=== PATIENT | female | born 1935 | race Caucasian/White ===

== ENCOUNTER 2017-06-01 07:29 | Emergency (ER) | payer OTHER, MEDICARE ==
[~2017-06-01] VITALS: Ht 165.1 cm; Wt 72.6 kg
[2017-06-01 07:36] VITALS: BP 139/73
[2017-06-01] MEDS ORDERED: TRAMADOL 50 MG50 MG PO (08:08)
[2017-07-21] MEDS ORDERED: LOPRESSOR50 PO (11:31)
[2017-07-21] MEDS ORDERED: HYDROCHLOROTHIA50 MG PO (11:32)
[2017-07-21] MEDS ORDERED: ATIVAN1 MG PO (11:32)
[2017-07-21] MEDS ORDERED: ATORVASTATIN CA40 MG PO (11:32)
[2017-07-21] MEDS ORDERED: VITAMIN E400 UNIT PO (11:33)
[2017-07-21] MEDS ORDERED: CENTRUM SILVER1 EAC4 PO (11:34)
[2017-07-21] MEDS ORDERED: ASPIRIN325 PO (11:35)
== END 2017-06-01 08:53 | disposition home or self-care (01) ==
LOC: ER 07:29
DX: M23.91 Unspecified internal derangement of right knee (principal); Z88.5 Allergy status to narcotic agent

== ENCOUNTER → 2017-07-27 | Outpatient (CLI) | payer OTHER, MEDICARE ==
[~2017-07-27] VITALS: Ht 165.1 cm; Wt 72.6 kg
[~2017-07-27] MED LIST: ASPIRIN325 PO; ATIVAN1 MG PO; ATORVASTATIN CA40 MG PO; CENTRUM SILVER1 EAC4 PO; HYDROCHLOROTHIA50 MG PO; LOPRESSOR50 PO; TRAMADOL 50 MG50 MG PO; VITAMIN E400 UNIT PO
--- NOTE | ~2017-07-27 | S ---
[facility] [place] [address] SURGICAL PATH RPT PROCEDURE Name: RICHA DAIGLE Room #: REG [facility] M..#: [id number] Admission: 07/27/17 Date of : 33 Discharge: Report #: [id number] Path Case #: [id number] PATHOLOGY REPORT COLLECTION DATE: 07/27/2017 RECEIVED DATE: 07/27/2017 SUBMITTING PHYS: Dr. Georges Wall OTHER PHYS: Dr. Arron Prater SPECIMEN(S) RECEIVED: A.Bx of cecal polyp * * * * * * * * * * * * FINAL DIAGNOSIS: Polyp, biopsy of cecal polyp, endoscopic biopsy: - Tubular adenoma. - Negative for high grade dysplasia. (IUV:mml; 07/28/2017) PATHOLOGIST: Yolanda Zarco M.D. REPORT ELECTRONICALLY SIGNED BY: Yolanda Zarco M.D. DATE/TIME: 07/28/2017 13:25 * * * * * * * * * * * * GROSS PATHOLOGY: Received in formalin labeled "Richa Daigle, BX of cecal polyp" and consists of a 0.5 cm soft mcdermott tissue fragment which is entirely submitted as A1. (SAKSHI; 07/27/2017) CLINICAL HISTORY: History of polyps INITIAL CPT CODE(S): A; 73857 Professional services performed by [facility] at [facility] [address], [place] [address] Technical services performed by [facility] at [address] [place] [address]., [address], [place] [address]. [facility] [address] [place] [address] SURGICAL PATH RPT PROCEDURE Name: RICHA DAIGLE Room #: REG BRIAN Zarate#: [id number] Admission: 07/27/17 Date of : 33 Discharge: Report #: [id number] Path Case #: [id number] [place] [address] PHONE: [phone] DIRECTOR: Dipak Colbert M.D. * * * END OF REPORT * * *
--- NOTE | ~2017-07-27 | P ---
[facility] [place] [address] PROCEDURE REPORT Name: TUTU DAIGLE Room #: REG [facility]#: [id number] Admission: 07/27/17 Attend Phys: Georges Wall MD Discharge: Date of : 33 Report #: [id number] THIS REPORT FOR: //name// CC: Ehsan Wall BRIEF HISTORY: The patient is an old 81-year-old woman with a history of flat polyps in the proximal colon, for high risk screening colonoscopy. PREOPERATIVE DIAGNOSIS: High risk screening colonoscopy. POSTOPERATIVE DIAGNOSES: 1. Diminutive polyp, cecum. 2. Moderate sigmoid diverticulosis. 3. Small internal hemorrhoids. MEDICATIONS: Deep sedation with propofol per anesthesia. SPECIMEN: Cecal polyp. ESTIMATED BLOOD LOSS: 3 mL. PROCEDURE: Colonoscopy to cecum and terminal ileum with biopsy. FINDINGS: Prior to propofol sedation, the procedure of colonoscopy was discussed with the patient as well as potential risks, benefits, and complications. She indicates she understands and desires to proceed. With the patient in left lateral decubitus position, digital examination was completed, which revealed no abnormalities. Subsequently, the [employer] video colonoscope was introduced in the rectum, advanced under direct vision to the cecum. She had a tortuous sigmoid colon, but once we were above the sigmoid colon, scope was passed easily in the cecum. The cecum was identified by the ileocecal valve and the appendiceal orifice. I was also able to advance the scope into the distal segment of terminal ileum, which was inspected and noted to be unremarkable. At that point, the scope was slowly withdrawn and careful circumferential views obtained. As the scope was withdrawn, the mucosa was inspected and noted to be within normal limits, normal vascular pattern, normal light reflex. In the cecum, there was a diminutive polyp was seen and removed by biopsy. Scope was withdrawn through the remainder of the colon, no additional neoplastic lesions were seen. A couple of diverticula were seen in the proximal colon and she was noted to have moderate diverticula in the sigmoid colon without endoscopic evidence of diverticulitis, strictures or masses. Scope was withdrawn in the rectum and upon retroflexion, no abnormalities were seen. Scope was withdrawn. The patient tolerated the procedure well. [address] [address] PROCEDURE REPORT Name: OXANATUTU BHUMIKA Room #: REG [facility].#: [id number] Admission: 07/27/17 Attend Phys: Georges Wall MD Discharge: Date of : 33 Report #: [id number] CONDITION OF THE PATIENT UPON DISCHARGE: Following procedure, the patient drowsy, arousable and conversant and will be discharged to home when fully ambulatory. INSTRUCTIONS TO THE PATIENT AND FAMILY AT THE TIME OF DISCHARGE: Last colonoscopy was more than 3 years ago. Withdrawal time from the cecum was 13 minutes 59 seconds. We will follow up on the path report and make further recommendations. If this is an adenoma, typical recommendation would be to return in 5 years; if not, typical recommendation would be 10 years and she is not likely to benefit from a colonoscopy in 10 years. In addition, in 5 years, she would be 86 and benefit at that point would be very questionable as well. By: [id number] Georges Wall MD /nt
== END | disposition home or self-care (01) ==
LOC: GI 07:20
DX: Z09 Encounter for follow-up examination after completed treatment for conditions other than malignant neoplasm (principal); Z86.010 Personal history of colon polyps; D12.0 Benign neoplasm of cecum; K57.30 Diverticulosis of large intestine without perforation or abscess without bleeding; K64.8 Other hemorrhoids; K63.89 Other specified diseases of intestine; I10 Essential (primary) hypertension; E78.5 Hyperlipidemia, unspecified; F32.89 Other specified depressive episodes; F41.8 Other specified anxiety disorders; Z98.41 Cataract extraction status, right eye; Z98.42 Cataract extraction status, left eye; Z98.890 Other specified postprocedural states; Z79.82 Long term (current) use of aspirin; Z79.899 Other long term (current) drug therapy
CPT/HCPCS: 62110; 62900

== ENCOUNTER 2018-05-24 07:49 | Emergency (ER) | payer OTHER, MEDICARE ==
[~2018-05-24] VITALS: Ht 165.1 cm; Wt 73.9 kg
[2018-05-24 08:11] LABS: URINE BILIRUBIN NEGATIVE (Negative); URINE BLOOD 2+ (Negative); URINE CLARITY TURBID; URINE COLOR RED; URINE GLUCOSE-RANDOM* NEGATIVE (Negative); URINE KETONES NEGATIVE (Negative); URINE LEUKOCYTES-REFLEX TRACE (Negative); URINE NITRITE-REFLEX NEGATIVE (Negative); URINE PROTEIN (DIPSTICK) 2+ (Negative); URINE SPECIFIC GRAVITY 1.025 (1.005-1.035); URINE UROBILINOGEN 0.2 E.U./dl (0.2-1.0)
[2018-05-24 08:15] LABS: BACTERIA-REFLEX 1-9 Few /HPF (None Seen); CASTS None Seen /LPF (None Seen); CRYSTALS None Seen /LPF (None Seen); SQUAMOUS 0-3 Few /LPF (0-3); URINE RBC >20 Many /HPF (0-2); URINE WBC-REFLEX 6-15 Few /HPF (0-5)
[2018-05-24] MEDS ORDERED: PYRIDIUM200 MG PO (08:22)
[2018-05-24] MEDS ORDERED: CIPRO500 MG PO (08:22)
[2018-05-24 08:29] VITALS: BP 139/69
== END 2018-05-24 08:38 | disposition home or self-care (01) ==
LOC: ER 07:49
PROVIDERS: Emergency Medicine
DX: N30.01 Acute cystitis with hematuria (principal); F41.9 Anxiety disorder, unspecified; I10 Essential (primary) hypertension; E78.5 Hyperlipidemia, unspecified; Z88.7 Allergy status to serum and vaccine; Z88.5 Allergy status to narcotic agent

== ENCOUNTER → 2019-06-14 | Outpatient (CLI) | payer OTHER, MEDICARE ==
[~2019-06-14] MED LIST changes: +CIPRO500 MG PO; +PYRIDIUM200 MG PO
== END ==
LOC: RAD 09:50
DX: M75.101 Unspecified rotator cuff tear or rupture of right shoulder, not specified as traumatic (principal); M19.011 Primary osteoarthritis, right shoulder; M25.711 Osteophyte, right shoulder; M25.411 Effusion, right shoulder

== ENCOUNTER 2019-12-22 16:50 | Emergency (ER) | payer OTHER, MEDICARE ==
[~2019-12-22] VITALS: Ht 165.1 cm; Wt 72.6 kg
[2019-12-22] MEDS ORDERED: LORAZEPAM 1 MG T1 MG PO (17:04)
[2019-12-22 17:08] LABS: URINE BILIRUBIN 3+ (Negative); URINE BLOOD 3+ (Negative); URINE CLARITY CLOUDY; URINE COLOR RED; URINE GLUCOSE-RANDOM* TRACE (Negative); URINE KETONES 1+ (Negative); URINE PROTEIN (DIPSTICK) 3+ (Negative); URINE SPECIFIC GRAVITY 1.015 (1.005-1.035)
[2019-12-22 17:14] LABS: URINE LEUKOCYTES-REFLEX 3+ (Negative); URINE NITRITE-REFLEX POSITIVE (Negative)
[2019-12-22 17:16] LABS: ICTOTEST (BILI CONFIRMATORY) Negative (Negative)
[2019-12-22 17:17] LABS: SQUAMOUS 0-3 Few /LPF (0-3); URINE RBC >20 Many /HPF (0-2)
[2019-12-22 17:18] LABS: BACTERIA-REFLEX 1-9 Few /HPF (None Seen); CASTS None Seen /LPF (None Seen); CRYSTALS None Seen /LPF (None Seen); URINE WBC-REFLEX >25 Many /HPF (0-5)
[2019-12-22 17:46] LABS: HEMATOCRIT 41.7 % (37.0-47.0); HEMOGLOBIN 14.1 gm/dL (12.0-15.0); MCH 29.6 pg (26.0-34.0); MCHC 33.8 g/dL (28.0-37.0); MCV 87.6 fL (80.0-100.0); PLATELET COUNT 218 thou/uL (150-400); RBC 4.76 mil/uL (4.20-5.00); WBC 9.8 thou/uL (4.0-11.0)
[2019-12-22 17:53] LABS: CALCIUM 9.2 mg/dL (8.5-10.1); CREATININE 0.7 mg/dL (0.6-1.0); POTASSIUM 3.5 mmol/L (3.5-5.1)
[2019-12-22] MEDS ORDERED: CIPRO500 M1 PO (17:58)
[2019-12-22] MEDS ORDERED: PHENAZOPYRIDIN200 M2 PO (17:58)
[2019-12-22 18:05] LABS: ABSOLUTE NEUTROPHILS 7.1 thou/uL (1.4-8.2); ANISOCYTOSIS 1+; POLYCHROMASIA OCCASIONAL
[2019-12-22 18:11] LABS: TOTAL BILIRUBIN 0.8 mg/dL (0.2-1.0); TOTAL PROTEIN 7.1 g/dL (6.4-8.2)
[2019-12-22 18:22] VITALS: BP 141/74
== END 2019-12-22 18:25 | disposition home or self-care (01) ==
LOC: ER 16:50
PROVIDERS: Physician Assistant
DX: N39.0 Urinary tract infection, site not specified (principal); I10 Essential (primary) hypertension; E78.5 Hyperlipidemia, unspecified; Z79.899 Other long term (current) drug therapy; Z79.82 Long term (current) use of aspirin; Z88.7 Allergy status to serum and vaccine; Z88.5 Allergy status to narcotic agent